=== PATIENT | female | born 1950 | race Caucasian/White ===

== ENCOUNTER 2019-02-27 10:25 | Emergency (ER) | payer MEDICARE ==
[~2019-02-27] VITALS: Ht 165.1 cm; Wt 124.5 kg
[2019-02-27] MEDS ORDERED: CHOL100029 PO (10:36)
[2019-02-27] MEDS ORDERED: SYNT125T PO (10:36)
[2019-02-27] MEDS ORDERED: LISI20TA19 (10:36)
--- NOTE | 2019-02-27 11:22 | REP ---
PA and lateral chest: There are no comparisons. There are no focal infiltrates. There is a slight effacement of the costophrenic angles bilaterally, possibly small bilateral pleural effusions, seen to best advantage on the lateral view. Cardiac size is upper normal. The shweta and mediastinum are unremarkable. There is a cervical spine stabilization plate. Impression: Possible small bilateral pleural effusions. Electronically Signed by Jovi Finney MD 02/27/2019 11:14 A
[2019-02-27 11:30] LABS: INFLUENZA A AMPLIFICATION NEGATIVE (NEGATIVE); INFLUENZA B AMPLIFICATION NEGATIVE (NEGATIVE)
[2019-02-27 11:32] LABS: BASO # 0.1 10^3/uL (0.0-0.2); BASO % 0.7 % (0.0-1.0); EOS # 0.3 10^3/uL (0.0-0.5); EOS % 2.9 % (0.0-3.0); HEMATOCRIT 41.6 % (36.0-47.0); HEMOGLOBIN 13.7 g/dl (12.0-15.5); LYMPH # 2.3 10^3/uL (1.5-5.0); LYMPH % 26.6 % (24.0-44.0); MEAN CORPUSCULAR HGB CONC 32.9 g/dl (32.0-36.5); MONO # 0.6 10^3/uL (0.0-0.8); MONO % 7.2 % (0.0-5.0); NEUTROPHILS # 5.4 10^3/uL (1.5-8.5); NEUTROPHILS % 62.3 % (36.0-66.0); PLATELET COUNT, AUTOMATED 221 10^3/uL (150-450); RED BLOOD COUNT 4.57 10^6/uL (4.00-5.40); WHITE BLOOD COUNT 8.6 10^3/uL (4.0-10.0)
[2019-02-27 11:58] LABS: ALBUMIN 3.5 GM/DL (3.2-5.2); ALT/SGPT 34 U/L (12-78); BILIRUBIN,TOTAL 0.7 MG/DL (0.2-1.0); BLOOD UREA NITROGEN 14 MG/DL (7-18); CALCIUM LEVEL 8.7 MG/DL (8.8-10.2); CARBON DIOXIDE LEVEL 28 MEQ/L (21-32); CHLORIDE LEVEL 109 MEQ/L (98-107); CK-MB VALUE MASS 1.6 NG/ML (<3.6); CPK CREATINE PHOSPHOKINASE 63 U/L (26-192); CREATININE FOR GFR 0.75 MG/DL (0.55-1.30); GLOMERULAR FILTRATION RATE > 60.0 (>45); GLUCOSE, FASTING 88 MG/DL (70-100); MB/CK RELATIVE INDEX 2.54 (< OR =4); NT-PRO BNP 830 PG/ML (<125); SODIUM LEVEL 144 MEQ/L (136-145); TOTAL PROTEIN 6.5 GM/DL (6.4-8.2); TROPONIN I < 0.02 NG/ML (< 0.10)
[2019-02-27] MEDS ORDERED: PRED20TA PO (13:02)
[2019-02-27] MEDS ORDERED: predniSONE 20 MG TAB PO ONE (13:15)
[2019-02-27 13:24] VITALS: BP 166/77
--- NOTE | 2019-02-28 08:12 | ECGEPIP ---
[facility] - ED Test Date: 2019-02-27 Pat Name: MERLINE BROUSSARD Department: Room: - Gender: Female Human Services Professional: JENN : 1950 Requested By: Angely NAIK Order Number: [id number] Reading MD: Fiona Varela Measurements Intervals [place] Rate: 66 P: 0 [place]: 166 QRS: -12 QRSD: 82 T: 50 QT: 415 QTc: 438 Interpretive Statements SINUS RHYTHM PRWP LOW VOLTAGE LIMB baseline artifact may affect interpretation No prior Electronically Signed on 02-28-2019 8:12:14 EDT by Fiona Varela
--- NOTE | 2019-03-01 10:38 | ED PDOC ---
Post-Departure Follow-Up certified letter sent to pt re formal read of cxr. needs fu w pcp. obtain pcp na me and fax report Danisha Grimm MD Mar 01, 2019 10:38
== END 2019-02-27 13:28 | disposition home or self-care (01) ==
LOC: M ED 10:25
DX: J06.9 Acute upper respiratory infection, unspecified (principal); R06.02 Shortness of breath; I10 Essential (primary) hypertension; Z91.018 Allergy to other foods; Z79.899 Other long term (current) drug therapy
CPT/HCPCS: 71046; 80053; 82550; 82553; 83880; 84484; 85025; 87486; 87502; 87581; 87633; 87798; 87880; 93005; 99284; G0463

== ENCOUNTER → 2019-02-27 | Outpatient (REF) | payer MEDICARE ==
[~2019-02-27] MED LIST: CHOL100029 PO; LISI20TA19; PRED20TA PO; SYNT125T PO
== END ==
LOC: M SFHCLERA 09:54
PROVIDERS: ATTEND Physician Assistant
DX: J02.9 Acute pharyngitis, unspecified (principal)